=== PATIENT | male | born 1990 | race African-American/Black ===

== ENCOUNTER 2019-08-16 01:11 | Emergency (ER) | payer MEDICAID ==
[~2019-08-16] VITALS: Ht 165.1 cm; Wt 62.0 kg
[2019-08-16] MEDS ORDERED: IBUPROFEN 600MG TABLET PO ONE (02:00)
[2019-08-16] MEDS ORDERED: AMOXICILLIN/POTASSIUM CLAVULANATE 875/125MG TAB PO ONE (02:00)
[2019-08-16] MEDS ORDERED: TETANUS, DIPHTHERIA, PERTUSSIS VAC/PF 0.5ML (>7YR OLD) IM ONE (02:00)
[2019-08-16 02:12] VITALS: BP 136/85
== END 2019-08-16 02:10 | disposition home or self-care (01) ==
LOC: ER 01:11
DX: S81.051A Open bite, right knee, initial encounter (principal); F12.10 Cannabis abuse, uncomplicated; W54.0XXA Bitten by dog, initial encounter; Y93.9 Activity, unspecified; Y92.89 Other specified places as the place of occurrence of the external cause; Y99.8 Other external cause status
CPT/HCPCS: 90471; 90715; 99283